=== PATIENT | male | born 1980 | race Caucasian/White ===

== ENCOUNTER 2020-09-24 23:53 | Emergency (ER) | payer SELFPAY ==
[2020-09-25] MEDS ORDERED: Bacitracin 1 PK ONE (00:19)
[2020-09-25] MEDS ORDERED: Boostrix 0.5 ML (Tdap) VIAL ONE (00:23)
[2020-09-25] MEDS ORDERED: HYDROcodone/Acetaminophen 5/325 mg Tablet ONE (01:18)
== END 2020-09-25 01:32 ==
LOC: ERS 23:53
DX: S92.411A Displaced fracture of proximal phalanx of right great toe, initial encounter for closed fracture (principal); S09.90XA Unspecified injury of head, initial encounter; Z87.891 Personal history of nicotine dependence; W22.8XXA Striking against or struck by other objects, initial encounter
CPT/HCPCS: 70450; 70486; 72125; 90471; 90715

== ENCOUNTER 2021-07-14 21:20 | Emergency (ER) | payer OTHER, SELFPAY ==
[2021-07-14] MEDS ORDERED: Lidocaine 1% PF 5 ML VIAL ONE (21:45)
[2021-07-14] MEDS ORDERED: Oxymetazoline HCl 0.05% (30 ML BOT) ONE (21:50)
[2021-07-14] MEDS ORDERED: Ketorolac Tromethamine 30 MG/ML VIAL ONE (22:49)
[2021-07-14] MEDS ORDERED: Boostrix 0.5 ML (Tdap) VIAL ONE (22:49)
[2021-07-14] MEDS ORDERED: Morphine 4 MG/ML VIAL ONE (22:49)
== END 2021-07-14 23:29 ==
LOC: ERS 21:20
DX: S02.2XXA Fracture of nasal bones, initial encounter for closed fracture (principal); S01.81XA Laceration without foreign body of other part of head, initial encounter; Y04.8XXA Assault by other bodily force, initial encounter; E78.5 Hyperlipidemia, unspecified; F17.210 Nicotine dependence, cigarettes, uncomplicated; Z79.899 Other long term (current) drug therapy
CPT/HCPCS: 12011; 90471; 90715; 96372; J1885; J2270